=== PATIENT | male | born 2000 | race Caucasian/White ===

== ENCOUNTER 2020-03-24 20:30 | Emergency (ER) | payer MEDICAID ==
[~2020-03-24] VITALS: Ht 177.8 cm; Wt 63.0 kg
[2020-03-24 20:47] VITALS: BP 121/72
--- NOTE | 2020-03-24 20:50 | NUR ---
seen and examined by ermd in triage room
[2020-03-24 21:30] VITALS: BP 121/72
--- NOTE | 2020-03-24 21:30 | NUR ---
Patient discharged with v/s stable. Written and verbal after care instructions given and explained. Patient alert, oriented and verbalized understanding of instructions. Ambulatory with steady gait. All questions addressed prior to discharge. ID band removed. Patient advised to follow up with PMD. Rx of robaxin 750mg, ibuprofen 400mg given. Patient educated on indication of medication including possible reaction and side effects. Opportunity to ask questions provided and answered.
== END 2020-03-24 21:30 | disposition home or self-care (01) ==
LOC: MED 20:30
DX: S40.011A Contusion of right shoulder, initial encounter (principal); V89.2XXA Person injured in unspecified motor-vehicle accident, traffic, initial encounter; Y93.89 Activity, other specified; Y92.89 Other specified places as the place of occurrence of the external cause; Y99.8 Other external cause status
CPT/HCPCS: 99283

== ENCOUNTER 2023-07-06 15:12 | Emergency (ER) | payer SELFPAY ==
[~2023-07-06] VITALS: Ht 175.3 cm; Wt 66.8 kg
[2023-07-06 15:21] VITALS: BP 139/83; RESP 18; TEMP 98.1; O2SAT 99
[2023-07-06] MEDS ORDERED: BENZ20GE11 MM (16:09)
[2023-07-06] MEDS ORDERED: IBUP-2213 PO (16:09)
[2023-07-06] MEDS ORDERED: AMOX500C25 PO (16:09)
[2023-07-06 16:27] VITALS: BP 139/83; PULSE 78; RESP 18; TEMP 98.1; O2SAT 99
== END 2023-07-06 16:27 | disposition home or self-care (01) ==
LOC: MED 15:12
DX: K08.89 Other specified disorders of teeth and supporting structures (principal); Z79.899 Other long term (current) drug therapy
CPT/HCPCS: 99283